=== PATIENT | female | born 1960 | race Caucasian/White ===

== ENCOUNTER 2017-04-27 15:27 | Outpatient (CLI) | payer BC ==
--- NOTE | 2017-04-28 11:30 | OP Clinic Progress Note ---
BRIEF HISTORY: This 56-year-old lady is seen with reduced hearing in both ears and a history of cerumen. She has cerumen impacted quite tightly in the right ear more than the left. PLAN: Under the microscope, I debrided and cleaned both ear canals with fine picks. The eardrums are normal. Clinically, she has markedly improved hearing. She will return on a p.r.n. basis. [facility] CENTERJaelyn
== END 2017-04-27 15:30 ==
LOC: ENT 15:27
PROVIDERS: ATTEND Otolaryngology
DX: H61.23 Impacted cerumen, bilateral (principal)
CPT/HCPCS: 69210; 99203